=== PATIENT | female | born 1975 | race African-American/Black ===

== ENCOUNTER 2023-01-01 03:18 | Emergency (ER) | payer OTHER ==
[~2023-01-01] VITALS: Ht 160 cm; Wt 78.0 kg
[2023-01-01] MEDS ORDERED: LORAZEPAM 0.5 MG TAB ONE (04:04)
[2023-01-01] MEDS ORDERED: OLMESARTAN-HCT1 EACH PO ×2 (04:09→04:17)
[2023-01-01] MEDS ORDERED: KLONOPIN1 MG PO ×2 (04:10→04:17)
[2023-01-01] MEDS ORDERED: LORAZEPAM 1 MG TAB PO ONE (04:15)
[2023-01-01 04:25] VITALS: BP 176/98
== END 2023-01-01 04:25 | disposition home or self-care (01) ==
LOC: FSED 03:23
DX: I10 Essential (primary) hypertension (principal); Z91.148 Patient's other noncompliance with medication regimen for other reason; E11.9 Type 2 diabetes mellitus without complications; E78.5 Hyperlipidemia, unspecified; E03.9 Hypothyroidism, unspecified; F41.9 Anxiety disorder, unspecified; G47.00 Insomnia, unspecified
CPT/HCPCS: 99282